=== PATIENT | male | born 1990 | race Caucasian/White ===

== ENCOUNTER 2019-06-23 11:03 | Emergency (ER) | payer SELFPAY ==
[~2019-06-23] VITALS: Ht 175.3 cm; Wt 81.7 kg
[2019-06-23] MEDS ORDERED: Indomethacin50 MG PO (12:32)
[2019-06-23] MEDS ORDERED: Norco 5-325 Ta1 EACH PO (12:32)
[2019-06-23] MEDS ORDERED: AZIT250 PO (12:33)
[2019-06-23] MEDS ORDERED: ALBU90OI INH (12:34)
== END 2019-06-23 11:47 | disposition home or self-care (01) ==
LOC: ER 11:03
DX: R09.1 Pleurisy (principal); F17.200 Nicotine dependence, unspecified, uncomplicated
CPT/HCPCS: 71046; 93005; 93010; 94640; 99283-25